=== PATIENT | female | born 1950 | race Caucasian/White ===

== ENCOUNTER → 2018-01-04 07:33 | Outpatient (CLI) | payer MEDICARE, OTHER, SELFPAY ==
[2018-01-04 08:01] LABS: Appearance Urine UA CLEAR; Bilirubin Urine UA NEGATIVE (NEGATIVE); Color Urine UA YELLOW; Glucose Urine UA NEGATIVE (Normal); Hemoglobin 13.8 g/dL (12.0-16.0); Ketones Urine UA NEGATIVE (NEGATIVE); Leukocyte Esterase Urine UA 1+ (NEGATIVE); Mean Corpuscular HGB Conc 34.6 % (30-36); Mean Corpuscular Hemoglobin 33.6 PG (26-34); Mean Corpuscular Volume 97.2 fL (80-100); Nitrite Urine UA Negative (Negative); Occult Blood Urine UA 1+ (Negative); Platelet Count 266 X10^3/uL (150-400); Protein Urine UA NEGATIVE (Negative); Red Blood Cell Count 4.12 X10^6/uL (4.0-5.2); Red Cell Distribution Width 13.1 % (11.6-14.8); Specific Gravity Urine UA <=1.005 (1.000-1.035); Urobilinogen Urine UA 0.2 E.U./dL (0.2); White Blood Cell Count 4.8 X10^3/uL (4.5-11.0); pH Urine UA 6.5 (4.5-8.0)
[2018-01-04 08:11] LABS: Bacteria Urine Few (2-10); Culture Indicated Urine Specimen Cultured; RBC Urine 1-5/HPF (0-5/HPF); Squamous Epithelial Cell Urine 0-1 /HPF; WBC Urine 1-5/HPF (0-5/HPF)
[2018-01-04 08:17] LABS: Alanine Aminotransferase 29 IU/L (9-52); Albumin 4.6 g/dL (3.5-5.0); Albumin Globulin Ratio 1.9 (1.0-2.8); Alkaline Phosphatase 64 U/L (38-126); Aspartate Aminotransferase 38 IU/L (14-36); Blood Urea Nitrogen 12 mg/dL (7-17); Calcium 9.3 mg/dL (8.4-10.2); Carbon Dioxide 34 mmol/L (22-32); Chloride 95 mmol/L (98-107); Cholesterol 204 mg/dL (140-199); Estimated Glomerular Filt Rate > 60.0 mL/min (>60); Globulin 2.4 g/dL (1.7-4.1); Glucose 97 mg/dL (80-110); HDL Cholesterol 102 mg/dL (40-60); HEMOLYSIS < 15 (0-50); LDL Cholesterol Calculated 91 mg/dL (<100); Sodium 137 mmol/L (137-145); Triglycerides 55 mg/dL (35-150)
[2018-01-04 08:44] LABS: Neutrophils Absolute Manual 2688 /uL (3000-5900); Total Cells Counted 100
[2018-01-04 08:45] LABS: Macrocytosis 1+
[2018-01-04 10:01] LABS: Thyroid Stimulating Hormone 2.64 uIU/mL (0.47-4.68)
== END ==
PROVIDERS: PCP Family Medicine; Visit Provider Family Medicine
DX: I10 Essential (primary) hypertension (principal); Z51.81 Encounter for therapeutic drug level monitoring
CPT/HCPCS: 36415; 80053; 80061; 81001; 84443; 85025; 87086

== ENCOUNTER → 2018-01-19 09:33 | Outpatient (CLI) | payer MEDICARE, OTHER, SELFPAY ==
--- NOTE | 2018-01-19 | DI.MG.S_ITS ---
BILATERAL DIGITAL SCREENING MAMMOGRAM 3D/2D WITH CAD: 01/19/2018 CLINICAL: Routine screening. Comparison is made to exams dated: 12/30/2016 mammogram, 12/27/2015 mammogram, and 11/29/2014 mammogram - [facility]. The tissue of both breasts is heterogeneously dense. This may lower the sensitivity of mammography. Current study was also evaluated with a Computer Aided Detection (CAD) system. There are mole markers on the left breast. No significant masses, calcifications, or other findings are seen in either breast. There has been no significant interval change. IMPRESSION: NEGATIVE There is no mammographic evidence of malignancy. A 1 year screening mammogram is recommended.(01/20/2019) This exam was interpreted at Station ID: [id number]. NOTE: For mammograms, a report in lay terms will be sent to the patient. Approximately 15% of breast malignancies will not be visualized mammographically. In the management of a palpable breast mass, a negative mammogram must not discourage biopsy of a clinically suspicious lesion. Electronically Signed By: Christoph jimenez/aden:01/21/2018 05:11:31 letter sent: Normal Exam ACR BI-RADS Category 1: Negative 3341F
== END ==
PROVIDERS: PCP Family Medicine; Visit Provider Family Medicine
DX: Z12.31 Encounter for screening mammogram for malignant neoplasm of breast (principal)
CPT/HCPCS: 77063; 77067

== ENCOUNTER → 2018-09-22 07:33 | Outpatient (CLI) | payer MEDICARE, OTHER, SELFPAY ==
[2018-09-22 09:41] LABS: Add Manual Diff / Slide Review NO; Basophils Absolute Auto 100 /uL (0-100); Basophils Percent Auto 1.3 % (0-2); Eosinophils Absolute Auto 300 /uL (0-450); Eosinophils Percent Auto 5.9 % (2-4); Hematocrit 39.3 % (36-46); Hemoglobin 13.8 g/dL (12.0-16.0); Lymphocytes Absolute Auto 1200 /uL (1100-4500); Lymphocytes Percent Auto 26.7 % (25-40); Mean Corpuscular HGB Conc 35.1 % (30-36); Mean Corpuscular Hemoglobin 33.4 PG (26-34); Mean Corpuscular Volume 95.4 fL (80-100); Monocytes Absolute Auto 600 /uL (0-900); Monocytes Percent Auto 13.7 % (3-14); Neutrophils Absolute Auto 2300 /uL (1500-7000); Neutrophils Percent Auto 52.4 % (50-75); Platelet Count 303 X10^3/uL (150-400); Red Blood Cell Count 4.13 X10^6/uL (4.0-5.2); White Blood Cell Count 4.5 X10^3/uL (4.5-11.0)
[2018-09-22 09:52] LABS: Alanine Aminotransferase 19 IU/L (9-52); Albumin 4.6 g/dL (3.5-5.0); Albumin Globulin Ratio 1.8 (1.0-2.8); Alkaline Phosphatase 72 U/L (38-126); Aspartate Aminotransferase 35 IU/L (14-36); Bilirubin Total 0.6 mg/dL (0.2-1.3); Blood Urea Nitrogen 14 mg/dL (7-17); Calcium 9.6 mg/dL (8.4-10.2); Carbon Dioxide 32 mmol/L (22-32); Chloride 90 mmol/L (98-107); Cholesterol 204 mg/dL (140-199); Estimated Glomerular Filt Rate > 60.0 mL/min (>60); Globulin 2.6 g/dL (1.7-4.1); Glucose 76 mg/dL (80-110); HDL Cholesterol 101 mg/dL (40-60); HEMOLYSIS < 15 (0-50); LDL Cholesterol Calculated 96 mg/dL (<100); Potassium 4.1 mmol/L (3.4-5.1); Sodium 132 mmol/L (137-145); Total Protein 7.2 g/dL (6.3-8.2); Triglycerides 36 mg/dL (35-150)
== END ==
PROVIDERS: PCP Family Medicine; Visit Provider Family Medicine
DX: I10 Essential (primary) hypertension (principal); Z51.81 Encounter for therapeutic drug level monitoring
CPT/HCPCS: 36415; 80053; 80061; 84443; 85025

== ENCOUNTER → 2019-09-15 15:12 | Outpatient (CLI) | payer MEDICARE, OTHER, SELFPAY ==
--- NOTE | 2019-09-15 | DI.MG.S_ITS ---
BILATERAL DIGITAL SCREENING MAMMOGRAM 3D/2D WITH CAD: 09/15/2019 CLINICAL: Routine screening. Comparison is made to exams dated: 01/19/2018 mammogram, 12/30/2016 mammogram, and 12/27/2015 mammogram - [facility]. The tissue of both breasts is heterogeneously dense. This may lower the sensitivity of mammography. Current study was also evaluated with a Computer Aided Detection (CAD) system. There are mole markers on the left breast. No significant masses, calcifications, or other findings are seen in either breast. There has been no significant interval change. IMPRESSION: NEGATIVE There is no mammographic evidence of malignancy. A 1 year screening mammogram is recommended. This exam was interpreted at Station ID: [id number]. NOTE: For mammograms, a report in lay terms will be sent to the patient. Approximately 15% of breast malignancies will not be visualized mammographically. In the management of a palpable breast mass, a negative mammogram must not discourage biopsy of a clinically suspicious lesion. Electronically Signed By: Marily harry/aden:09/15/2019 15:55:55 letter sent: Normal Exam ACR BI-RADS Category 1: Negative 3341F
== END ==
PROVIDERS: Referring Provider Family Medicine; Visit Provider Family Medicine
DX: Z12.31 Encounter for screening mammogram for malignant neoplasm of breast (principal)
CPT/HCPCS: 77063; 77067

== ENCOUNTER → 2019-10-03 13:50 | Outpatient (CLI) | payer MEDICARE, OTHER, SELFPAY | PROVIDERS: PCP Registered Nurse Diabetes Educator; Referring Provider Registered Nurse Diabetes Educator; Visit Provider Family Medicine | DX: Z13.820 Encounter for screening for osteoporosis (principal); Z78.0 Asymptomatic menopausal state; M81.0 Age-related osteoporosis without current pathological fracture; Z87.891 Personal history of nicotine dependence | CPT/HCPCS: 77080 ==

== ENCOUNTER → 2019-10-28 08:05 | Outpatient (CLI) | payer MEDICARE, OTHER, SELFPAY ==
[2019-10-28 08:57] LABS: Hematocrit 38.9 % (36-46); Hemoglobin 13.8 g/dL (12.0-16.0); Mean Corpuscular HGB Conc 35.6 % (30-36); Mean Corpuscular Hemoglobin 34.6 PG (26-34); Mean Corpuscular Volume 97.3 fL (80-100); Platelet Count 285 X10^3/uL (150-400); Red Cell Distribution Width 12.4 % (11.6-14.8); White Blood Cell Count 4.7 X10^3/uL (4.5-11.0)
[2019-10-28 09:24] LABS: Alanine Aminotransferase 22 IU/L (<35); Albumin 4.9 g/dL (3.5-5.0); Albumin Globulin Ratio 2.5 (1.0-2.8); Alkaline Phosphatase 76 U/L (38-126); Aspartate Aminotransferase 41 IU/L (14-36); BUN Creatinine Ratio 24.4 (6-22); Bilirubin Total 0.8 mg/dL (0.2-1.3); Blood Urea Nitrogen 11 mg/dL (7-17); Calcium 9.7 mg/dL (8.4-10.2); Carbon Dioxide 30 mmol/L (22-32); Chloride 89 mmol/L (98-107); Cholesterol 212 mg/dL (140-199); Estimated Glomerular Filt Rate > 60.0 mL/min (>60); Glucose 92 mg/dL (80-110); HEMOLYSIS < 15 (0-50); Potassium 4.2 mmol/L (3.4-5.1); Sodium 128 mmol/L (137-145); Total Protein 6.9 g/dL (6.3-8.2); Triglycerides 49 mg/dL (35-150)
[2019-10-28 09:32] LABS: HDL Cholesterol 113 mg/dL (40-60); LDL Cholesterol Calculated 89 mg/dL (<100)
[2019-10-28 09:37] LABS: Vitamin D 25 Hydroxy (D3) 26.8 ng/mL (30.0-100.0)
[2019-10-28 09:53] LABS: TSH w/ Reflex to FT4 1.78 uIU/mL (0.47-4.68)
== END ==
PROVIDERS: PCP Registered Nurse Diabetes Educator; Referring Provider Registered Nurse Diabetes Educator; Visit Provider Registered Nurse Diabetes Educator
DX: Z00.00 Encounter for general adult medical examination without abnormal findings (principal); M81.0 Age-related osteoporosis without current pathological fracture; I10 Essential (primary) hypertension
CPT/HCPCS: 36415; 80053; 80061; 82306; 84443; 85027

== ENCOUNTER → 2019-11-14 09:00 | Outpatient (CLI) | payer MEDICARE, OTHER, SELFPAY ==
[2019-11-14 10:42] LABS: BUN Creatinine Ratio 21.2 (6-22); Blood Urea Nitrogen 11 mg/dL (7-17); Calcium 9.9 mg/dL (8.4-10.2); Carbon Dioxide 27 mmol/L (22-32); Chloride 98 mmol/L (98-107); Estimated Glomerular Filt Rate > 60.0 mL/min (>60); Glucose 91 mg/dL (80-110); HEMOLYSIS < 15 (0-50); Sodium 132 mmol/L (137-145)
== END ==
PROVIDERS: PCP Registered Nurse Diabetes Educator; Referring Provider Registered Nurse Diabetes Educator; Visit Provider Registered Nurse Diabetes Educator
DX: E87.1 Hypo-osmolality and hyponatremia (principal)
CPT/HCPCS: 36415; 80048

== ENCOUNTER → 2020-01-06 09:21 | Outpatient (CLI) | payer MEDICARE, OTHER, SELFPAY ==
[2020-01-06 09:55] LABS: BUN Creatinine Ratio 25.4 (6-22); Blood Urea Nitrogen 15 mg/dL (7-17); Calcium 9.1 mg/dL (8.4-10.2); Carbon Dioxide 29 mmol/L (22-32); Chloride 99 mmol/L (98-107); Estimated Glomerular Filt Rate > 60.0 mL/min (>60); Glucose 76 mg/dL (80-110); HEMOLYSIS < 15 (0-50); Potassium 4.3 mmol/L (3.4-5.1); Sodium 136 mmol/L (137-145)
== END ==
PROVIDERS: PCP Registered Nurse Diabetes Educator; Referring Provider Registered Nurse Diabetes Educator; Visit Provider Registered Nurse Diabetes Educator
DX: E87.1 Hypo-osmolality and hyponatremia (principal)
CPT/HCPCS: 36415; 80048

== ENCOUNTER → 2020-10-15 11:20 | Outpatient (CLI) | payer MEDICARE, OTHER, SELFPAY ==
--- NOTE | 2020-10-15 | DI.MG.S_ITS ---
BILATERAL DIGITAL SCREENING MAMMOGRAM 3D/2D WITH CAD: 10/15/2020 CLINICAL: Routine screening. Comparison is made to exams dated: 09/15/2019 mammogram, 01/19/2018 mammogram, and 12/30/2016 mammogram - [facility]. The tissue of both breasts is heterogeneously dense. This may lower the sensitivity of mammography. Current study was also evaluated with a Computer Aided Detection (CAD) system. No significant masses, calcifications, or other findings are seen in either breast. There has been no significant interval change. IMPRESSION: NEGATIVE There is no mammographic evidence of malignancy. A 1 year screening mammogram is recommended. This exam was interpreted at Station ID: [id number]. NOTE: For mammograms, a report in lay terms will be sent to the patient. Approximately 15% of breast malignancies will not be visualized mammographically. In the management of a palpable breast mass, a negative mammogram must not discourage biopsy of a clinically suspicious lesion. Electronically Signed By: Ramos rivera/aden:10/15/2020 13:42:14 letter sent: Normal Exam ACR BI-RADS Category 1: Negative 3341F
== END ==
PROVIDERS: PCP Registered Nurse Diabetes Educator; Referring Provider Registered Nurse Diabetes Educator; Visit Provider Registered Nurse Diabetes Educator
DX: Z12.31 Encounter for screening mammogram for malignant neoplasm of breast (principal)
CPT/HCPCS: 77063; 77067

== ENCOUNTER → 2021-01-14 08:07 | Outpatient (CLI) | payer MEDICARE, OTHER, SELFPAY ==
[2021-01-14 09:22] LABS: Hematocrit 41.5 % (36-46); Hemoglobin 13.6 g/dL (12.0-16.0); Mean Corpuscular HGB Conc 32.8 % (30-36); Mean Corpuscular Hemoglobin 32.4 PG (26-34); Mean Corpuscular Volume 98.8 fL (80-100); Platelet Count 250 X10^3/uL (150-400); Red Cell Distribution Width 13.1 % (11.6-14.8); White Blood Cell Count 4.6 X10^3/uL (4.5-11.0)
[2021-01-14 09:49] LABS: Alanine Aminotransferase 22 IU/L (<35); Albumin 4.5 g/dL (3.5-5.0); Albumin Globulin Ratio 1.9 (1.0-2.8); Alkaline Phosphatase 65 U/L (38-126); Aspartate Aminotransferase 36 IU/L (14-36); BUN Creatinine Ratio 28.6 (6-22); Bilirubin Total 0.6 mg/dL (0.2-1.3); Blood Urea Nitrogen 14 mg/dL (7-17); Calcium 9.3 mg/dL (8.4-10.2); Carbon Dioxide 30 mmol/L (22-32); Chloride 100 mmol/L (98-107); Cholesterol 217 mg/dL (140-199); Estimated Glomerular Filt Rate > 60.0 mL/min (>60); Globulin 2.4 g/dL (1.7-4.1); Glucose 92 mg/dL (80-110); HEMOLYSIS < 15 (0-50); Potassium 4.9 mmol/L (3.4-5.1); Sodium 134 mmol/L (137-145); Total Protein 6.9 g/dL (6.3-8.2); Triglycerides 57 mg/dL (35-150)
[2021-01-14 10:03] LABS: HDL Cholesterol 136 mg/dL (40-60); LDL Cholesterol Calculated 70 mg/dL (<100)
[2021-01-14 10:17] LABS: TSH w/ Reflex to FT4 1.91 uIU/mL (0.47-4.68)
== END ==
PROVIDERS: PCP Registered Nurse Diabetes Educator; Referring Provider Registered Nurse Diabetes Educator; Visit Provider Registered Nurse Diabetes Educator
DX: E87.1 Hypo-osmolality and hyponatremia (principal); I10 Essential (primary) hypertension
CPT/HCPCS: 36415; 80053; 80061; 84443; 85027

== ENCOUNTER → 2021-08-27 08:38 | Outpatient (CLI) | payer MEDICARE, OTHER, SELFPAY ==
[2021-08-27 09:58] LABS: Hematocrit 40.4 % (36-46); Hemoglobin 13.9 g/dL (12.0-16.0); Mean Corpuscular HGB Conc 34.4 % (30-36); Mean Corpuscular Hemoglobin 33.5 PG (26-34); Mean Corpuscular Volume 97.2 fL (80-100); Platelet Count 238 X10^3/uL (150-400); Red Blood Cell Count 4.16 X10^6/uL (4.0-5.2); White Blood Cell Count 4.9 X10^3/uL (4.5-11.0)
[2021-08-27 10:33] LABS: Alanine Aminotransferase 19 IU/L (<35); Albumin 4.3 g/dL (3.5-5.0); Alkaline Phosphatase 62 U/L (38-126); Aspartate Aminotransferase 32 IU/L (14-36); Bilirubin Total 0.6 mg/dL (0.2-1.3); Blood Urea Nitrogen 14 mg/dL (7-17); Calcium 8.8 mg/dL (8.4-10.2); Carbon Dioxide 27 mmol/L (22-32); Chloride 99 mmol/L (98-107); Cholesterol 219 mg/dL (140-199); Estimated Glomerular Filt Rate > 60 mL/min (>60); Globulin 2.2 g/dL (1.7-4.1); Glucose 91 mg/dL (80-110); HEMOLYSIS < 15 (0-50); Potassium 4.7 mmol/L (3.4-5.1); Sodium 134 mmol/L (137-145); Total Protein 6.5 g/dL (6.3-8.2); Triglycerides 55 mg/dL (35-150)
[2021-08-27 10:44] LABS: HDL Cholesterol 143 mg/dL (40-60); LDL Cholesterol Calculated 65 mg/dL (<100)
== END ==
PROVIDERS: PCP Registered Nurse Diabetes Educator; Referring Provider Registered Nurse Diabetes Educator; Visit Provider Registered Nurse Diabetes Educator
DX: E87.1 Hypo-osmolality and hyponatremia (principal); I10 Essential (primary) hypertension; M81.0 Age-related osteoporosis without current pathological fracture
CPT/HCPCS: 36415; 80053; 80061; 84443; 85027

== ENCOUNTER → 2021-09-26 11:50 | Outpatient (CLI) | payer MEDICARE, OTHER, SELFPAY ==
--- NOTE | 2021-09-26 11:51 | DI.RAD.S_ITS ---
PROCEDURE: XR DEXA AXIAL SKELETON INDICATIONS: f/u osteoporosis treatment COMPARISON: None. FINDINGS: This blank DEXA report has been sent in error by the PACS system. The correct and complete report will be forthcoming in 1-2 days. Thank you for your patience and understanding. Dictated by: Christiana Yeung MD, PhD on 09/26/2021 at 12:30 Approved by: Christiana Yeung MD, PhD on 09/26/2021 at 12:30
== END ==
PROVIDERS: PCP Registered Nurse Diabetes Educator; Referring Provider Registered Nurse Diabetes Educator; Visit Provider Registered Nurse Diabetes Educator
DX: Z78.0 Asymptomatic menopausal state; M81.0 Age-related osteoporosis without current pathological fracture
CPT/HCPCS: 77080

== ENCOUNTER → 2021-10-30 13:39 | Outpatient (CLI) | payer MEDICARE, OTHER, SELFPAY ==
--- NOTE | 2021-10-30 | DI.MG.S_ITS ---
BILATERAL DIGITAL SCREENING MAMMOGRAM 3D/2D WITH CAD: 10/30/2021 CLINICAL: Routine screening. Comparison is made to exams dated: 10/15/2020 mammogram, 09/15/2019 mammogram, and 01/19/2018 mammogram - [facility]. The tissue of both breasts is heterogeneously dense. This may lower the sensitivity of mammography. Current study was also evaluated with a Computer Aided Detection (CAD) system. No significant masses, calcifications, or other findings are seen in either breast. There has been no significant interval change. IMPRESSION: NEGATIVE There is no mammographic evidence of malignancy. A 1 year screening mammogram is recommended. Based on the Tyrer Cuzick model (a risk assessment model) the patient's lifetime risk is 6.6% and her 10 year risk is 4.5%. According to the ACR, ACS, and NCCN guidelines, an annual breast MRI exam along with mammogram is recommended if the patient's lifetime risk is 20% or greater. This exam was interpreted at Station ID: [id number]. NOTE: For mammograms, a report in lay terms will be sent to the patient. Approximately 15% of breast malignancies will not be visualized mammographically. In the management of a palpable breast mass, a negative mammogram must not discourage biopsy of a clinically suspicious lesion. Electronically Signed By: Nitish mims/aden:10/30/2021 15:26:43 letter sent: Normal Exam ACR BI-RADS Category 1: Negative 3341F
== END ==
PROVIDERS: PCP Registered Nurse Diabetes Educator; Referring Provider Registered Nurse Diabetes Educator; Visit Provider Registered Nurse Diabetes Educator
DX: Z12.31 Encounter for screening mammogram for malignant neoplasm of breast (principal)
CPT/HCPCS: 77063; 77067

== ENCOUNTER → 2021-12-23 08:57 | Outpatient (CLI) | payer MEDICARE, OTHER, SELFPAY ==
[2021-12-23 11:24] LABS: COVID19 -Nasal RAPID Negative (Negative)
== END ==
PROVIDERS: PCP Registered Nurse Diabetes Educator; Visit Provider Surgery
DX: Z20.822 Contact with and (suspected) exposure to COVID-19 (principal); Z01.812 Encounter for preprocedural laboratory examination
CPT/HCPCS: 87635; C9803

== ENCOUNTER 2021-12-24 08:22 | Day surgery (SDC) | payer MEDICARE, OTHER, SELFPAY ==
[2021-12-24 08:34] VITALS: BP 120/71; PULSE 71; RESP 18; TEMP 36.7; O2SAT 96; BMI 21.4
[2021-12-24] MEDS: LACTATED RINGERS 1,000 ML 42 ML IV (08:44)
--- NOTE | 2021-12-24 09:31 | PM.HP.1 ---
History of Present Illness History of Present Illness Date Patient Seen: 12/24/21 Time Patient Seen: 09:32 Chief complaint: SDC Narrative: The patient presents for colorectal screening. Most recent colonoscopy 3 years ago at outside institution demonstrated benign polyp. No personal or family history of colon cancer. On further history denies any recent gastrointestinal symptoms. No nausea, vomiting, abdominal pain, loss of appetite, unexplained weight loss, change in bowel habits, diarrhea, constipation, melena, hematochezia, or bright red blood per rectum. Patient History Medical History Arthritis Colon polyps (05/2012) Hx of varicose veins Hyperlipemia Hypertension Hyponatremia Osteopenia (~03/2016) Osteoporosis Tubular adenoma of colon Surgical History Hx of colonoscopy with polypectomy (05/2012) Hx of knee surgery (~1996) Family & Social History Family History Mother Hypothyroid Father No problems noted. Brother Leukemia Social History: household members spouse Tobacco & Substance use: Smoking Status Former smoker alcohol intake current alcohol intake frequency 0-2 drinks per day Substance Use Type does not use Meds Home Medications and Allergies Home Medications Medication Instructions Recorded Confirmed Type amlodipine 10 mg tablet 10 mg PO DAILY #90 tabs 10/07/21 12/24/21 Rx lisinopril 40 mg tablet 40 mg PO QDAY #90 tabs 10/07/21 12/24/21 Rx ibandronate 150 mg tablet 150 mg PO QMONTH #3 tabs 10/09/21 12/24/21 Rx sodium,potassium,mag sulfates 17.5 See Rx Instructions PO .COMPLEX 12/19/21 Rx gram-3.13 gram-1.6 gram oral soln #354 mL (Suprep Bowel Prep Kit) Allergies Allergy/AdvReac Type Severity Reaction Status Date / Time Penicillins Allergy Unknown Verified 12/24/21 08:40 venom-honey bee Allergy Unknown Verified 12/24/21 08:40 [bee venom (honey bee)] Exam Vital Signs (past 8 hours): - 12/24/21 08:34 Temperature 98.1 F Pulse Rate 71 Respiratory Rate 18 Blood Pressure 120/71 Pulse Oximetry 96 Oxygen Delivery Method Room Air Oxygen Delivery Method Room Air Narrative Exam Narrative: General adult woman alert oriented no acute distress Abdomen soft nontender nondistended Assessment & Plan Assessment & Plan narrative: The patient requires colorectal screening and colonoscopy is recommended. Technical details were discussed. Risks, benefits, alternatives explained. Risks including but not limited to myocardial infarction, aspiration, bleeding, pain, missed lesion, incomplete examination, need for further radiographic studies, colonic perforation, and need for major abdominal surgery were discussed. All questions were answered to their satisfaction, and they are in agreement with this plan. Time Spent With Patient Critical Care time: I spent a total of [] minutes of critical care time on this patient's care today; this time is exclusive of procedural time.
[2021-12-24] MEDS: MIDAZOLAM 5 MG/5 ML VIAL IV (10:05)
[2021-12-24] MEDS: fentaNYL 100 MCG/2 ML INJ 200 MCG IV (10:07)
--- NOTE | 2021-12-24 10:08 | PM.OP.COLON ---
Operative Date/Time/Diagnoses Date of procedure: 12/24/21 Time of procedure: 10:08 Pre-op diagnosis: Personal history of colonic polyps Post-op diagnosis: same Procedure & Clinicians Study performed: Colonoscopy Same procedure as scheduled: Yes Indications: Personal history of colonic polyps Surgeon: Chalino Ferguson Procedure Notes Procedure in detail: Medications: Conscious sedation using 7mg IV midazolam and 200mcg IV of fentanyl The history and physical was performed/updated and the patient is ASA class is 2. The procedure was discussed in detail with the patient. Potential risks complications including infection, bleeding, missed diagnosis, perforation, need for surgery, and were explained. Their questions were answered and informed consent was obtained. Patient was brought to the procedure room and placed standard monitoring equipment. The patient's vital signs were monitored continuously throughout the entire procedure. Prior to starting time-out was performed. The patient was placed in the left lateral recumbent position. Procedural sedation was administered. Examination began with a thorough inspection of the perianal area there was no evidence of fissures, fistulae, external hemorrhoids or cutaneous malignancy. The colonoscopy scope was then placed into the anal canal and was advanced to the cecum, which was identified by the ileocecal valve, the appendiceal orifice and the confluence of the taenia. The scope was then slowly withdrawn examining colon thoroughly in all directions, irrigating it of any residual stool. FINDINGS 1. No masses or polyps 2. Tortuous colon 3. Internal hemorrhoids The patient tolerated the procedure well. They will be discharged once criteria are met. The prep was of good/excellent quality. The withdrawl time was 6minutes. The sedation time was 28 minutes. Specimen(s): none sent Complications: none Impression: Normal colonoscopy Post-procedure Recommendations: Colonoscopy in 5 years Disposition: same day surgery
[2021-12-24 10:10] VITALS: BP 98/63; PULSE 66; RESP 16; TEMP 36.7; O2SAT 12
[2021-12-24 10:15] VITALS: BP 96/63; PULSE 68; RESP 14; O2SAT 95
[2021-12-24 10:20] VITALS: BP 97/67; PULSE 70; RESP 14; O2SAT 95
--- NOTE | 2021-12-24 10:20 | SUR.PHASEI ---
IV INSPECTED UPON ARRIVAL. NO REDNESS OR SWELLING AT SIGHT, PATENT AND FLOWING
[2021-12-24 10:25] VITALS: BP 96/60; PULSE 67; RESP 15; O2SAT 95
[2021-12-24 10:29] VITALS: BP 112/68; BP 98/60; PULSE 68; PULSE 69; RESP 15; RESP 18; TEMP 37.1; O2SAT 94; O2SAT 96
--- NOTE | 2021-12-24 10:36 | SUR.PHASEII ---
Pt was given discharge instructions. Pt states she understands discharge instructions . Pt to be discharged with her .
== END 2021-12-24 10:44 | disposition home or self-care (01) ==
PROVIDERS: PCP Registered Nurse Diabetes Educator; Referring Provider Surgery; Visit Provider Surgery
PROC: 0DJD8ZZ Inspection of Lower Intestinal Tract, Via Natural or Artificial Opening Endoscopic (ICD-10-PCS; CPT 45378; principal; 2021-12-24 09:30)
DX: Z86.010 Personal history of colon polyps (principal); K64.8 Other hemorrhoids; I10 Essential (primary) hypertension; E78.5 Hyperlipidemia, unspecified
CPT/HCPCS: G0105; 99152; 99153; J2250; J3010

== ENCOUNTER → 2022-11-11 12:24 | Outpatient (CLI) | payer MEDICARE, OTHER, SELFPAY ==
--- NOTE | 2022-11-11 12:25 | DI.MG.S_ITS ---
BILATERAL DIGITAL SCREENING MAMMOGRAM 3D/2D WITH CAD: 11/11/2022 CLINICAL: Routine screening. Comparison is made to exams dated: 10/30/2021 mammogram, 10/15/2020 mammogram, and 09/15/2019 mammogram - [facility]. Both breasts are heterogeneously dense, which may obscure small masses (category c / 51-75% glandular tissue). Current study was also evaluated with a Computer Aided Detection (CAD) system. No significant masses, calcifications, or other findings are seen in either breast. There has been no significant interval change. IMPRESSION: NEGATIVE There is no mammographic evidence of malignancy. A 1 year screening mammogram is recommended. Based on the Tyrer Cuzick model (a risk assessment model) the patient's lifetime risk is 6.3% and her 10 year risk is 4.7%. According to the ACR, ACS, and NCCN guidelines, an annual breast MRI exam along with mammogram is recommended if the patient's lifetime risk is 20% or greater. This exam was interpreted at Station ID: [id number]. NOTE: For mammograms, a report in lay terms will be sent to the patient. Approximately 15% of breast malignancies will not be visualized mammographically. In the management of a palpable breast mass, a negative mammogram must not discourage biopsy of a clinically suspicious lesion. Electronically Signed By: Marily harry/aden:11/11/2022 16:09:56 letter sent: Normal Exam ACR BI-RADS Category 1: Negative 3341F
== END ==
PROVIDERS: PCP Registered Nurse Diabetes Educator; Referring Provider Registered Nurse Diabetes Educator; Visit Provider Registered Nurse Diabetes Educator
DX: Z12.31 Encounter for screening mammogram for malignant neoplasm of breast (principal)
CPT/HCPCS: 77063; 77067

== ENCOUNTER → 2022-11-28 07:28 | Outpatient (CLI) | payer MEDICARE, OTHER, SELFPAY ==
[2022-11-28 07:46] LABS: Hematocrit 39.2 % (36-46); Hemoglobin 13.3 g/dL (12.0-16.0); Mean Corpuscular Hemoglobin 33.4 PG (26-34); Mean Corpuscular Volume 98.2 fL (80-100); Platelet Count 248 X10^3/uL (150-400); Red Cell Distribution Width 13.3 % (11.6-14.8); White Blood Cell Count 5.2 X10^3/uL (4.5-11.0)
[2022-11-28 08:08] LABS: Alanine Aminotransferase 20 IU/L (<35); Albumin 4.1 g/dL (3.5-5.0); Albumin Globulin Ratio 1.8 (1.0-2.8); Alkaline Phosphatase 70 U/L (38-126); Aspartate Aminotransferase 29 IU/L (14-36); BUN Creatinine Ratio 21.6 (6-22); Bilirubin Total 0.8 mg/dL (0.2-1.3); Blood Urea Nitrogen 11 mg/dL (7-17); Calcium 8.8 mg/dL (8.4-10.2); Carbon Dioxide 29 mmol/L (22-32); Chloride 98 mmol/L (98-107); Cholesterol 206 mg/dL (140-199); Estimated Glomerular Filt Rate > 60 mL/min (>60); Globulin 2.3 g/dL (1.7-4.1); Glucose 89 mg/dL (80-110); HEMOLYSIS < 15 (0-50); Potassium 4.7 mmol/L (3.4-5.1); Sodium 131 mmol/L (137-145); Total Protein 6.4 g/dL (6.3-8.2); Triglycerides 75 mg/dL (35-150)
[2022-11-28 08:31] LABS: HDL Cholesterol 121 mg/dL (40-60); LDL Cholesterol Calculated 70 mg/dL (<100)
== END ==
PROVIDERS: PCP Registered Nurse Diabetes Educator; Referring Provider Registered Nurse Diabetes Educator; Visit Provider Registered Nurse Diabetes Educator
DX: E87.1 Hypo-osmolality and hyponatremia (principal); I10 Essential (primary) hypertension; Z51.81 Encounter for therapeutic drug level monitoring
CPT/HCPCS: 36415; 80053; 80061; 85027

== ENCOUNTER → 2023-01-14 10:12 | Outpatient (CLI) | payer MEDICARE, OTHER, SELFPAY ==
[2023-01-14 11:37] LABS: BUN Creatinine Ratio 29.6 (6-22); Blood Urea Nitrogen 16 mg/dL (7-17); Calcium 9.7 mg/dL (8.4-10.2); Carbon Dioxide 26 mmol/L (22-32); Chloride 97 mmol/L (98-107); Estimated Glomerular Filt Rate > 60 mL/min (>60); Glucose 90 mg/dL (80-110); HEMOLYSIS < 15 (0-50); Potassium 4.6 mmol/L (3.4-5.1); Sodium 131 mmol/L (137-145)
== END ==
PROVIDERS: PCP Registered Nurse Diabetes Educator; Referring Provider Registered Nurse Diabetes Educator; Visit Provider Registered Nurse Diabetes Educator
DX: E87.1 Hypo-osmolality and hyponatremia (principal)
CPT/HCPCS: 36415; 80048

== ENCOUNTER → 2023-11-10 10:59 | Outpatient (CLI) | payer MEDICARE, OTHER, SELFPAY ==
--- NOTE | 2023-11-10 11:00 | DI.RAD.S_ITS ---
PROCEDURE: XR DEXA AXIAL SKELETON INDICATIONS: reeval COMPARISON: [facility], CR, XR DEXA AXIAL SKELETON, 09/26/2021, 12:03. [facility], CR, XR DEXA AXIAL SKELETON, 10/03/2019, 14:10. FINDINGS: Lumbar Spine: Bone mineral density 0.779 g/cm2, T score -2.4, no statistically significant change compared to prior. Left Hip: Bone mineral density 0.773 g/cm2, T score -1.4, no statistically significant change compared to prior. Left Femoral Neck: Bone mineral density 0.658 g/cm2, T score -1.7. Right Hip: Bone mineral density 0.729 g/cm2, T score -1.7, statistically significant increased compared to prior by 3.4 percent. Right Femoral Neck: Bone mineral density 0.656 g/cm2, T score -1.7. Fracture Risk Calculation (when applicable): 10-year fracture risk of a major osteoporotic fracture 10 percent and of a hip fracture 2.3 percent. (T score greater or equal to -1.0 to: NORMAL) (T score from -1.1 to -2.4: OSTEOPENIA) (T score less than or equal to -2.5: OSTEOPOROSIS) IMPRESSION: Low bone mineral density (osteopenia) by WHO classification. Follow-up guidelines as follows: Osteoporosis: Consider a repeat DEXA and Vertebral Fracture Assessment (VFA) exam in 2 years or sooner if medically necessary, to reassess this patient's status. Osteopenia: Consider a repeat DEXA in 2-3 years to reassess this patient's status, or if there is a new clinical indication. Normal: Consider a repeat DEXA in 5 years or sooner, or if there is a new clinical indication. All treatment decisions require clinical judgment and consideration of individual patient factors, including patient preferences, comorbidities, previous drug use, risk factors not captured in the FRAX model (e.g., frailty, falls, vitamin D deficiency, increased bone turnover, interval significant decline in bone density ) and possible under- or over-estimation of fracture risk by FRAX. In addition, the NOF Guide recommends that FDA-approved medical therapies be considered in postmenopausal women and men age >= 50 years with a: * Hip or vertebral (clinical or morphometric) fracture * T-score of <=-2.5 at the spine or hip * Ten-year fracture probability by FRAX of >= 3% for hip fracture or >=20% for major osteoporotic fracture. People with diagnosed cases of osteoporosis or at high risk for fracture should have regular bone mineral density tests. For patients eligible for Medicare, routine testing is allowed once every 2 years. The testing frequency can be increased to one year for patients who have rapidly progressing disease, those who are receiving or discontinuing medical therapy to restore bone mass, or have additional risk factors. Dictated by: Jeronimo Diamond M.D. on 11/10/2023 at 13:18 Approved by: Jeronimo Diamond M.D. on 11/10/2023 at 13:20
== END ==
PROVIDERS: PCP Registered Nurse Diabetes Educator; Referring Provider Registered Nurse Diabetes Educator; Visit Provider Registered Nurse Diabetes Educator
DX: M81.0 Age-related osteoporosis without current pathological fracture (principal)
CPT/HCPCS: 77080

== ENCOUNTER → 2023-11-19 09:14 | Outpatient (CLI) | payer MEDICARE, OTHER, SELFPAY ==
[2023-11-19 10:37] LABS: Alanine Aminotransferase 19 IU/L (<35); Albumin 4.2 g/dL (3.5-5.0); Albumin Globulin Ratio 1.9 (1.0-2.8); Alkaline Phosphatase 79 U/L (38-126); Aspartate Aminotransferase 29 IU/L (14-36); Bilirubin Total 0.7 mg/dL (0.2-1.3); Blood Urea Nitrogen 12 mg/dL (7-17); Calcium 9.2 mg/dL (8.4-10.2); Carbon Dioxide 26 mmol/L (22-32); Chloride 102 mmol/L (98-107); Cholesterol 206 mg/dL (140-199); Estimated Glomerular Filt Rate > 60 mL/min (>60); Globulin 2.2 g/dL (1.7-4.1); Glucose 95 mg/dL (80-110); HEMOLYSIS < 15 (0-50); Potassium 4.3 mmol/L (3.4-5.1); Sodium 132 mmol/L (137-145); Total Protein 6.4 g/dL (6.3-8.2); Triglycerides 78 mg/dL (35-150)
[2023-11-19 11:02] LABS: HDL Cholesterol 121 mg/dL (40-60); LDL Cholesterol Calculated 69 mg/dL (<100)
== END ==
PROVIDERS: PCP Registered Nurse Diabetes Educator; Referring Provider Registered Nurse Diabetes Educator; Visit Provider Registered Nurse Diabetes Educator
DX: I10 Essential (primary) hypertension (principal)
CPT/HCPCS: 36415; 80053; 80061

== ENCOUNTER → 2023-12-02 08:26 | Outpatient (CLI) | payer MEDICARE, OTHER, SELFPAY ==
--- NOTE | 2023-12-02 | DI.MG.S_ITS ---
BILATERAL DIGITAL SCREENING MAMMOGRAM 3D/2D WITH CAD: 12/02/2023 CLINICAL: Routine screening. Comparison is made to exams dated: 11/11/2022 mammogram, 10/30/2021 mammogram, and 10/15/2020 mammogram - [facility]. Both breasts are heterogeneously dense, which may obscure small masses (category c / 51-75% glandular tissue). Current study was also evaluated with a Computer Aided Detection (CAD) system. No significant masses, calcifications, or other findings are seen in either breast. There has been no significant interval change. IMPRESSION: NEGATIVE There is no mammographic evidence of malignancy. A 1 year screening mammogram is recommended. Based on the Tyrer Cuzick model (a risk assessment model) the patient's lifetime risk is 5.9% and her 10 year risk is 4.8%. According to the ACR, ACS, and NCCN guidelines, an annual breast MRI exam along with mammogram is recommended if the patient's lifetime risk is 20% or greater. This exam was interpreted at Station ID: [id number]. NOTE: For mammograms, a report in lay terms will be sent to the patient. Approximately 15% of breast malignancies will not be visualized mammographically. In the management of a palpable breast mass, a negative mammogram must not discourage biopsy of a clinically suspicious lesion. Electronically Signed By: Nitish mims/aden:12/02/2023 12:04:23 letter sent: Normal Exam ACR BI-RADS Category 1: Negative 3341F
== END ==
PROVIDERS: PCP Registered Nurse Diabetes Educator; Referring Provider Registered Nurse Diabetes Educator; Visit Provider Registered Nurse Diabetes Educator
DX: Z12.31 Encounter for screening mammogram for malignant neoplasm of breast (principal); R92.333 Mammographic heterogeneous density, bilateral breasts
CPT/HCPCS: 77063; 77067

== ENCOUNTER → 2024-11-21 07:38 | Outpatient (CLI) | payer MEDICARE, OTHER, SELFPAY ==
[2024-11-21 09:10] LABS: Alanine Aminotransferase 32 IU/L (<35); Albumin 4.6 g/dL (3.5-5.0); Albumin Globulin Ratio 2.2 (1.0-2.8); Alkaline Phosphatase 70 U/L (38-126); Blood Urea Nitrogen 12 mg/dL (7-17); Calcium 9.2 mg/dL (8.4-10.2); Carbon Dioxide 26 mmol/L (22-32); Chloride 98 mmol/L (98-107); Cholesterol 213 mg/dL (140-199); Estimated Glomerular Filt Rate > 60 mL/min (>60); Globulin 2.1 g/dL (1.7-4.1); Glucose 90 mg/dL (70-99); HEMOLYSIS < 15 (0-50); Potassium 4.5 mmol/L (3.4-5.1); Sodium 131 mmol/L (137-145); Total Protein 6.7 g/dL (6.3-8.2); Triglycerides 76 mg/dL (35-150)
[2024-11-21 09:21] LABS: HDL Cholesterol 139 mg/dL (40-60)
== END ==
PROVIDERS: PCP Registered Nurse Diabetes Educator; Referring Provider Registered Nurse Diabetes Educator; Visit Provider Registered Nurse Diabetes Educator
DX: E87.1 Hypo-osmolality and hyponatremia (principal); I10 Essential (primary) hypertension
CPT/HCPCS: 36415; 80053; 80061

== ENCOUNTER → 2024-11-29 08:35 | Outpatient (CLI) | payer MEDICARE, OTHER, SELFPAY ==
--- NOTE | 2024-11-29 08:36 | DI.MG.S_ITS ---
MM screening mammo BI: 11/29/2024. BI-RADS: 1 CLINICAL: 74-year old female for bilateral screening mammogram. Tyrer-Cuzick lifetime risk of 2.2%. No personal or first-degree family history of breast cancer. PRIOR EXAMS 12/02/2023, 11/11/2022, 10/30/2021, 10/15/2020. MAMMOGRAPHY TECHNIQUE: 2D and 3D (tomosynthesis) digital mammographic views obtained, with additional images as needed for full coverage. Current study was also evaluated with a Computer Aided Detection (CAD) system. DENSITY C. The breasts are heterogeneously dense, which may obscure small masses. MAMMOGRAPHY FINDINGS Bilateral: No suspicious mass, asymmetry, microcalcification, or other abnormality seen. No significant change from comparison. IMPRESSION: * No evidence of malignancy. RECOMMENDATIONS Bilateral * Annual screening mammography. OVERALL ASSESSMENT CATEGORY BI-RADS-1: Negative. The [employer] recommends annual screening mammography beginning at age 40 for women with average risk of breast cancer. ELECTRONICALLY SIGNED: Haydee Vaughn M.D. on 11/29/2024 at 10:19:50 AM PT Interpreting Station ID: [id number]
== END ==
LOC: MAMMO 08:35
PROVIDERS: PCP Registered Nurse Diabetes Educator; Referring Provider Registered Nurse Diabetes Educator; Visit Provider Registered Nurse Diabetes Educator
DX: Z12.31 Encounter for screening mammogram for malignant neoplasm of breast (principal); R92.333 Mammographic heterogeneous density, bilateral breasts
CPT/HCPCS: 77063; 77067

== ENCOUNTER 2025-02-21 10:45 | Outpatient (RCR) | payer MEDICARE, OTHER, SELFPAY ==
--- NOTE | 2025-01-04 13:43 | PT.OPPOC ---
Physical, Occupational & Speech Therapy At [facility] Current Diagnoses Female genital prolapse, unspecified (01/04/25) Visit Care Team Role Provider Type EM Liriano Attending Provider Advanced Segment Block Layer Family Provider Primary Care Provider Referring Provider Specialty: Medical Address: [address] [place] [address], [facility] Email: [email or web address] Plan Of Care PT OP: Pelvic Health Start: 01/04/25 08:12 Freq: Status: Active Protocol: Document 01/04/25 11:35 [facility] (Rec: 01/04/25 11:53 [facility] [id number]) Out-Patient Physical Therapy Visit Information Visit Information Visit Type Initial Evaluation Visit Start Time 11:35 Visit Stop Time 12:20 Visit Number 1 Evaluation Information Evaluation Date 01/04/25 Current Condition History of Current Condition Onset Date 18 months History of Current pt reports she can feel symptoms of prolapse when she Condition stands for too long she was doing a lot of weights with her legs in a class in [place] and she went shopping one day and was on her feet all day and then she could feel it. She wasn't noting it as much when she was doing exercise like the bike it doesn't feel as bad Her has been going through cancer treatments so she hasn't been exercising as much recently and feels overall weaker when she sleeps and takes a nap she feels she has to run to the bathroom when she wakes up. as the day progressed she will feel the prolapse symptoms more Manual Assessments Soft Tissue Assessment Soft Tissue Mobility appearance of abdominal hernia midline abdominal wall Assessment Trunk Strength Trunk Manual Muscle Testing Core Stabilization weakness of the transverse abdominals and tightness of the obliques. Pt tends to flight nurse with the obliques pushing out the abdominal wall with attempt to contract the pelvic floor Therapeutic Exercises Supine Exercises pelvic floor long holds Reps/Minutes 5 second hold with 10 second release Comments tried sidelying and supine, tends to flight nurse with upper abdominal wall Self-Care/Home Management Treatment Education Patient Education Home Exercise Program,Pain Management Other Education Time was spent educating Maria Luisa on pelvic decompression using a wedge to elevate the pelvis to take pressure off, Maria Luisa could feel a difference in this position she was given a HEP for pelvic floor endurance training Physical Therapy Assessment Rehab Potential Rehabilitation Excellent Potential Evaluation Complexity Number of Body 1-2 Systems Impaired Clinical Stable Presentation at Evaluation Impairments Impairments Activity Tolerance,Functional Activities,Strength Other Impairments pelvic pressure and heaviness with pelvic organ prolapse Goals 3 Impairment Decreased endurance of the pelvic floor Short Term Goal (STG Maria Luisa is able to sustain a pelvic floor contraction in ) supine x 10 seconds STG Duration 4 weeks Senior Living Goal (LTG) Maria Luisa is able to sustain a pelvic floor contraction in standing 5-10 seconds LTG Duration 12 weeks 2 Impairment Decreased strength of the pelvic floor Short Term Goal (STG Maria Luisa is educated on a pelvic floor strengthening ) program with proper facilitation of the pelvic floor and without upper abdominal muscle substitution STG Duration 4 weeks Senior Living Goal (LTG) Maria Luisa is able to increase pelvic floor strength by at least 1 muscle grade in all abdalla of the levator ani LTG Duration 12 weeks 1 Impairment pelvic pressure and pelvic organ prolapse that pt is aware of after standing for long periods of time Short Term Goal (STG Maria Luisa is educated on pelvic decompression to decrease ) symptoms of prolapse Senior Living Goal (LTG) Maria Luisa reports a overall reduction in pelvic pressure and heaviness LTG Duration 12 weeks Assessment Summary Assessment 74 year old female with c/o pelvic organ prolapse x 18 months. She will feel the pelvic pressure and prolapse after she has been standing for a period of time especially in the kitchen. When she sits and rests she notes it will go back up and then she is able to go about her day. She began feeling theses symptoms after doing a weight training class in [place] and was wondering if she was lifting too much weight. She also reports recently she has been helping take care of her who is in cancer treatments and she hasn't been doing her walking as much and she feels that symptoms have worsened as she has gotten weaker. With exam today Maria Luisa tends to bear down through her abdominal wall when attempting to facilitate her pelvic floor. Time was spent educating her on pelvic floor isolation without upper abdominal substitution. She also tends to hold her breath. She feels she may have been breath holding with her weight lifting routine. She tests weak in her pelvic floor with MMT of 2/5 for posterior and lateral abdalla and 1/5 MMT for the anterior pelvic floor. I am able to feel a grade 1 rectocele and grade 1-2 uterine prolapse which sits more on the left side of the abdominal wall. She was tested only in supine today. Maria Luisa lacks endurance to sustain a pelvic floor contraction more than a few seconds in supine. She is a good candidate for pelvic floor PT working on proper pelvic floor facilitation, endurance training of the pelvic floor, education on avoiding gripping with the upper abdominal wall to decrease downward pressure on the pelvis, and body mechanics training to avoid undo strain downwards on her pelvic floor. Physical Therapy Plan Frequency and Duration Frequency of 1x/Week Treatment Duration of 12 treatment (weeks) Plan of Care Start 01/04/25 Date Plan of Care End 03/29/25 Date Therapeutic Interventions Therapeutic Home Exercise Program,Manual Therapy,Neuromuscular Re- Interventions education,Patient/Caregiver Education,Self-Care/Home Management,Soft Tissue Mobilization,Therapeutic Exercises Next Visit Focus/Plan Next Note Type Treatment Note Next Visit Plan Begin EMG biofeedback for pelvic floor endurance training check in with how Maria Luisa did standing at her kitchen counter without upper abdominal gripping Plan of Care Dates Plan of Care Start Date 01/04/25 Plan of Care End Date 03/29/25 Electronically Signed by: Erin Marie, PT 01/04/25 [id number] If you are in agreement with this Plan of Care, please return a signed and dated copy. I have reviewed this Plan of Care and certify that the skilled therapy services above are required to meet the patient?s needs. Physician Signature Date Printed Name and Credentials Clinical Instructor Signature Printed Name and Credentials
--- NOTE | 2025-01-11 12:31 | PT.OTN ---
Current Diagnoses Female genital prolapse, unspecified (01/11/25) Physical Therapy Treatment Note PT OP: Pelvic Health Start: 01/04/25 08:12 Freq: Status: Active Protocol: Document 01/11/25 11:34 [facility] (Rec: 01/11/25 12:31 [facility] [id number]) Out-Patient Physical Therapy Visit Information Visit Information Visit Start Time 11:35 Visit Stop Time 12:15 Visit Number 2 OP-PT Subjective Patient Comments Patient Comments pt reports she feels swollen and chaffing in her vaginal wall Therapeutic Exercises Supine Exercises hooklying hip abuction Equipment Used level 2 theraband Reps/Minutes 2 x 10 reps supine ball squeeze Reps/Minutes x 10 reps holding 5 seconds diaphragmatic breathing Reps/Minutes cues to let upper neck relax x 5 min pelvic floor long holds Supine Exercise Name pt is more aware today of not gripping with upper abdominal wall Reps/Minutes 5 second hold with 10 second release Comments cues for fulll 10 second release Physical Therapy Assessment Goals 3 Impairment Decreased endurance of the pelvic floor Short Term Goal (STG Maria Luisa is able to sustain a pelvic floor contraction in ) supine x 10 seconds STG Duration 4 weeks Prison Goal (LTG) Maria Luisa is able to sustain a pelvic floor contraction in standing 5-10 seconds LTG Duration 12 weeks 2 Impairment Decreased strength of the pelvic floor Short Term Goal (STG Maria Luisa is educated on a pelvic floor strengthening ) program with proper facilitation of the pelvic floor and without upper abdominal muscle substitution STG Duration 4 weeks Prison Goal (LTG) Maria Luisa is able to increase pelvic floor strength by at least 1 muscle grade in all abdalla of the levator ani LTG Duration 12 weeks 1 Impairment pelvic pressure and pelvic organ prolapse that pt is aware of after standing for long periods of time Short Term Goal (STG Maria Luisa is educated on pelvic decompression to decrease ) symptoms of prolapse Ostomy Rn Goal (LTG) Maria Luisa reports a overall reduction in pelvic pressure and heaviness LTG Duration 12 weeks Assessment Summary Assessment Time was spent working on pelvic floor relaxation today as well as contraction as she was moving fast through the relax phase. I also added in diaphragmatic breathing as she was holding her breath with contraction. She realized she has been tightening her gluteals and upper abdominals for a long time as a exercise and this is part of why it has been difficult to isolate her pelvic floor muscles. EMG biofeedback was not initiated today as Maria Luisa's tissue was irritated but we will try for next visit Physical Therapy Plan Frequency and Duration Frequency of 1x/Week Treatment Duration of 12 treatment (weeks) Plan of Care Start 01/04/25 Date Plan of Care End 03/29/25 Date Next Visit Focus/Plan Next Note Type Treatment Note Next Visit Plan review new exercises and begin biofeedback if Maria Luisa's tissue irritation has calmed down, continue to cue to pelvic floor isolation without upper abdominal substitution
--- NOTE | 2025-02-01 13:00 | PT.OTN ---
Current Diagnoses Female genital prolapse, unspecified (02/01/25) Physical Therapy Treatment Note PT OP: Pelvic Health Start: 01/04/25 08:12 Freq: Status: Active Protocol: Document 02/01/25 08:12 [facility] (Rec: 02/01/25 09:00 [facility] [id number]) Out-Patient Physical Therapy Visit Information Visit Information Visit Type Treatment Note Visit Start Time 08:15 Visit Stop Time 09:00 Visit Number 3 OP-PT Subjective Patient Comments Patient Comments she is not feeling as swollen but she hasn't been able to do her exercises she does feel that her prolapse may be a little better as she has been out weeding and has no noticed her prolapse as much. She did get a wedge for home Patient Reported Improving Progress Therapeutic Exercises Supine Exercises resting tone Supine Exercise Name 3.0 uv resting tone hooklying hip abuction Equipment Used level 2 theraband Reps/Minutes 2 x 10 reps pelvic floor long holds Reps/Minutes 10 sec hold and 10 sec relax Comments average 11 uv and max 21 Physical Therapy Assessment Goals 3 Impairment Decreased endurance of the pelvic floor Short Term Goal (STG Maria Luisa is able to sustain a pelvic floor contraction in ) supine x 10 seconds STG Duration 4 weeks Lens Marker Goal (LTG) Maria Luisa is able to sustain a pelvic floor contraction in standing 5-10 seconds LTG Duration 12 weeks 2 Impairment Decreased strength of the pelvic floor Short Term Goal (STG Maria Luisa is educated on a pelvic floor strengthening ) program with proper facilitation of the pelvic floor and without upper abdominal muscle substitution STG Duration 4 weeks Lens Marker Goal (LTG) Maria Luisa is able to increase pelvic floor strength by at least 1 muscle grade in all abdalla of the levator ani LTG Duration 12 weeks 1 Impairment pelvic pressure and pelvic organ prolapse that pt is aware of after standing for long periods of time Short Term Goal (STG Maria Luisa is educated on pelvic decompression to decrease ) symptoms of prolapse Lens Marker Goal (LTG) Maria Luisa reports a overall reduction in pelvic pressure and heaviness LTG Duration 12 weeks Assessment Summary Assessment EMG biofeedback was initiated today and Maria Luisa does have a elevated tone of the pelvic floor. SHe is still substituting with her gluteals and requires verbal cueing to isolate her pelvic floor. Decreased upper abdominal substitution today Physical Therapy Plan Frequency and Duration Frequency of 1x/Week Treatment Duration of 12 treatment (weeks) Plan of Care Start 01/04/25 Date Plan of Care End 03/29/25 Date Next Visit Focus/Plan Next Note Type Treatment Note Next Visit Plan progress to diaphragmatic breathing, continue working towards endurance holds of the pelvic floor
--- NOTE | 2025-02-07 16:00 | PT.OTN ---
Current Diagnoses Female genital prolapse, unspecified (02/07/25) Physical Therapy Treatment Note PT OP: Pelvic Health Start: 01/04/25 08:12 Freq: Status: Active Protocol: Document 02/07/25 14:35 [facility] (Rec: 02/07/25 15:13 [facility] [id number]) Out-Patient Physical Therapy Visit Information Visit Information Visit Type Treatment Note Visit Start Time 14:35 Visit Stop Time 15:15 Visit Number 4 OP-PT Subjective Patient Comments Patient Comments pt hasn't felt her prolapse much until today when she was at [employer] but overall things have felt better Therapeutic Exercises Supine Exercises resting tone Supine Exercise Name 2.5-3.0 uv hooklying hip abuction Equipment Used level 2 theraband Reps/Minutes 2 x 10 reps supine ball squeeze Reps/Minutes 10 reps holding 10 seconds Comments 18 uv and 35.8 uv max pelvic floor long holds Reps/Minutes 10 sec hold and 10 sec relax Comments 16.4 uv average max 28 uv Physical Therapy Assessment Goals 3 Impairment Decreased endurance of the pelvic floor Short Term Goal (STG Maria Luisa is able to sustain a pelvic floor contraction in ) supine x 10 seconds STG Duration 4 weeks Project Finance Analyst Goal (LTG) Maria Luisa is able to sustain a pelvic floor contraction in standing 5-10 seconds LTG Duration 12 weeks 2 Impairment Decreased strength of the pelvic floor Short Term Goal (STG Maria Luisa is educated on a pelvic floor strengthening ) program with proper facilitation of the pelvic floor and without upper abdominal muscle substitution STG Duration 4 weeks [facility] Goal (LTG) Maria Luisa is able to increase pelvic floor strength by at least 1 muscle grade in all abdalla of the levator ani LTG Duration 12 weeks 1 Impairment pelvic pressure and pelvic organ prolapse that pt is aware of after standing for long periods of time Short Term Goal (STG Maria Luisa is educated on pelvic decompression to decrease ) symptoms of prolapse Project Finance Analyst Goal (LTG) Maria Luisa reports a overall reduction in pelvic pressure and heaviness LTG Duration 12 weeks Assessment Summary Assessment Maria Luisa is doing better today with her ability to relax her pelvic floor, she does tend to inhale with contraction so time was spent working on relaxing pelvic floor with inhale Physical Therapy Plan Frequency and Duration Frequency of 1x/Week Treatment Duration of 12 treatment (weeks) Plan of Care Start 01/04/25 Date Plan of Care End 03/29/25 Date Next Visit Focus/Plan Next Note Type Treatment Note Next Visit Plan stretches for the pelvic floor next visit and continue with strengthening exercises
--- NOTE | 2025-02-14 15:13 | PT.OTN ---
Current Diagnoses Female genital prolapse, unspecified (02/14/25) Physical Therapy Treatment Note PT OP: Pelvic Health Start: 01/04/25 08:12 Freq: Status: Active Protocol: Document 02/14/25 14:32 [facility] (Rec: 02/14/25 15:12 [facility] [id number]) Out-Patient Physical Therapy Visit Information Visit Information Visit Type Treatment Note Visit Start Time 14:30 Visit Stop Time 15:10 Visit Number 5 OP-PT Subjective Patient Comments Patient Comments pt did lift some pots off the deck and brought them down the stairs and the next day did feel more symptoms . IT was Thursday when she lifted the pots Therapeutic Exercises Supine Exercises resting tone Supine Exercise Name 2.0 uv hooklying hip abuction Equipment Used level 2 theraband Reps/Minutes 2 x 10 reps supine ball squeeze Reps/Minutes 10 reps holding 10 seconds pelvic floor long holds Reps/Minutes 10 sec hold and 10 sec relax Comments 16.7 max 37.6 Self-Care/Home Management Treatment Education Patient Education Home Exercise Program,Pain Management Other Education lifting mechanics with pelvic floor engagement Physical Therapy Assessment Goals 3 Impairment Decreased endurance of the pelvic floor Short Term Goal (STG Maria Luisa is able to sustain a pelvic floor contraction in ) supine x 10 seconds STG Duration 4 weeks Auto Former Machine Operator Goal (LTG) Maria Luisa is able to sustain a pelvic floor contraction in standing 5-10 seconds LTG Duration 12 weeks 2 Impairment Decreased strength of the pelvic floor Short Term Goal (STG Maria Luisa is educated on a pelvic floor strengthening ) program with proper facilitation of the pelvic floor and without upper abdominal muscle substitution STG Duration 4 weeks Auto Former Machine Operator Goal (LTG) Maria Luisa is able to increase pelvic floor strength by at least 1 muscle grade in all abdalla of the levator ani LTG Duration 12 weeks 1 Impairment pelvic pressure and pelvic organ prolapse that pt is aware of after standing for long periods of time Short Term Goal (STG Maria Luisa is educated on pelvic decompression to decrease ) symptoms of prolapse Group Home Goal (LTG) Maria Luisa reports a overall reduction in pelvic pressure and heaviness LTG Duration 12 weeks Assessment Summary Assessment Maria Luisa had lifted a few pots off her deck and was feeling more pressure in her pelvic floor this week. We did go through lifting mechanics and pelvic floor engagement prior to lifting. Her strength of her pelvic floor is continuing to improve Physical Therapy Plan Frequency and Duration Frequency of 1x/Week Treatment Duration of 12 treatment (weeks) Plan of Care Start 01/04/25 Date Plan of Care End 03/29/25 Date Next Visit Focus/Plan Next Note Type Treatment Note Next Visit Plan review all exercises next visit as this will be Maria Luisa's last PT visit due to traveling to [place] for the winter
--- NOTE | 2025-02-21 11:30 | PT.OPDS ---
Current Diagnoses Female genital prolapse, unspecified (02/21/25) Visit Care Team Role Provider Type EM Liriano Attending Provider Advanced Curriculum Designer Family Provider Primary Care Provider Referring Provider Specialty: Medical Address: [address] [place] [address], [facility] Email: [email or web address] Visit Number Visit Number 6 Discharge Summary PT OP: Pelvic Health Start: 01/04/25 08:12 Freq: Status: Active Protocol: Document 02/21/25 10:45 [facility] (Rec: 02/21/25 10:50 [facility] [id number]) Out-Patient Physical Therapy Visit Information Visit Information Visit Type Treatment Note Visit Start Time 10:45 Visit Stop Time 11:23 Visit Number 6 OP-PT Subjective Patient Comments Patient Comments the symptoms of prolapse have calmed down again. She was able to do the happy baby stretch Therapeutic Exercises Supine Exercises templates for eccentric control Supine Exercise Name worked on eccentric control with elevator floors for the pelvic floor Reps/Minutes 5 min Comments cues for lightly lifting pelvic floor to each level resting tone Supine Exercise Name 2.5 uv supine ball squeeze Reps/Minutes 10 reps holding 10 seconds pelvic floor long holds Reps/Minutes 10 sec hold and 10 sec relax Comments 19.0 and max of 31 uv Self-Care/Home Management Treatment Education Patient Education Home Exercise Program,Pain Management Other Education weight lifting mechanics to avoid bearing down and breath holding Physical Therapy Assessment Goals 3 Impairment Decreased endurance of the pelvic floor Short Term Goal (STG Maria Luisa is able to sustain a pelvic floor contraction in ) supine x 10 seconds STG Duration 4 weeks [facility] Goal (LTG) Maria Luisa is able to sustain a pelvic floor contraction in standing 5-10 seconds LTG Duration 12 weeks 2 Impairment Decreased strength of the pelvic floor Short Term Goal (STG Maria Luisa is educated on a pelvic floor strengthening ) program with proper facilitation of the pelvic floor and without upper abdominal muscle substitution STG Duration 4 weeks Game Artist Goal (LTG) Maria Luisa is able to increase pelvic floor strength by at least 1 muscle grade in all abdalla of the levator ani LTG Duration 12 weeks 1 Impairment pelvic pressure and pelvic organ prolapse that pt is aware of after standing for long periods of time Short Term Goal (STG Maria Luisa is educated on pelvic decompression to decrease ) symptoms of prolapse [facility] Goal (LTG) Maria Luisa reports a overall reduction in pelvic pressure and heaviness LTG Duration 12 weeks Assessment Summary Assessment Maria Luisa is independent with her HEP at this time and will be headed to [place] for the winter soon. This is her last visit in PT. Pelvic pressure and heaviness have decreased at this time and she plans on returning to her aquatic therapy program in [place]. She will be discharged from PT Physical Therapy Plan Discharge Physical Therapy Discharge Comments pt is Ind with her HEP and will be headed soon to [place] for the winter. She will be discharged from PT at this time
== END 2025-02-22 09:50 | disposition home or self-care (01) ==
LOC: PHYS 10:45
PROVIDERS: Family Provider Registered Nurse Diabetes Educator; PCP Registered Nurse Diabetes Educator; Referring Provider Registered Nurse Diabetes Educator; Visit Provider Registered Nurse Diabetes Educator
DX: N81.9 Female genital prolapse, unspecified (principal)
CPT/HCPCS: 97110; 97161; 97535